=== PATIENT | female | born 1980 | race Two or more races ===

== ENCOUNTER 2019-09-13 20:35 | Emergency (ER) | payer OTHER ==
[~2019-09-13] VITALS: Ht 160 cm; Wt 63.5 kg
[2019-09-13] MEDS ORDERED: MORGIDOX100 MG (20:57)
== END 2019-09-13 22:30 | disposition home or self-care (01) ==
LOC: ER 20:35
DX: D17.1 Benign lipomatous neoplasm of skin and subcutaneous tissue of trunk (principal); L02.212 Cutaneous abscess of back [any part, except buttock and flank]